=== PATIENT | male | born 1985 | race Caucasian/White ===

== ENCOUNTER 2019-06-27 08:32 | Day surgery (SDC) | payer OTHER ==
[~2019-06-27 08:32] MED LIST: BUPIVACAINE 0.5% PF 30 ML VIAL ONE; CEFAZOLIN SODIUM IN 0.9 % NACL 2 GM/100 ML BAG IV ONE; LIDOCAINE MPF 1%-EPI 1:200000 30 ML VIAL ONE
[2019-06-27] MEDS ORDERED: PROPOFOL 200 MG/20 ML VIAL IVP ONE (08:33)
[2019-06-27] MEDS ORDERED: DEXAMETHASONE 4 MG/ML VIAL IVP ONE (08:33)
[2019-06-27] MEDS ORDERED: fentaNYL 100 MCG/2 ML VIAL IVP ONE (08:33)
[2019-06-27] MEDS ORDERED: MIDAZOLAM 2 MG/2 ML VIAL IVP ONE (08:33)
[2019-06-27] MEDS ORDERED: KETOROLAC 30 MG/ML VIAL IVP ONE (08:33)
[2019-06-27] MEDS ORDERED: LACTATED RINGERS 1,000 ML IV ONE (09:03)
--- NOTE | 2019-06-27 09:21 | ANESTHESIA ---
Pre-Anesthesia VS, & Labs - Diagnosis umbilical hernia - Procedure umbilical hernia repair Vital Signs: Temp Pulse Resp BP Pulse Ox 36 C L 73 16 129/91 H 100 06/27/19 08:43 06/27/19 08:43 06/27/19 08:43 06/27/19 08:43 06/27/19 08:43 Height 6 ft 2 in Weight (kg) 89.1 kg - NPO >8 hours Home Medications and Allergies Home Medications: Ambulatory Orders Sildenafil Citrate [Viagra] 25 mg PO DAILY PRN 06/15/19 Multivitamin [Multiple Vitamins] 1 DAILY 06/27/19 Sildenafil Citrate [Viagra] 25 mg PO DAILY PRN 06/15/19 Multivitamin [Multiple Vitamins] 1 DAILY 06/27/19 Allergies/Adverse Reactions: Allergies Allergy/AdvReac Type Severity Reaction Status Date / Time No Known Drug Allergies Allergy Verified 06/15/19 13:58 Anes History & Medical History - Anesthetic History Family history of Anesthesia Complications: Denies Family history of Malignant Hyperthermia: Denies - Medical History Cardiovascular: reports: None Pulmonary: reports: Asthma (childhood asthma, now resolved), Sleep apnea (probable sleep apnea, has been refered for sleep study) Gastrointestinal: reports: None Urinary: reports: None Neuro: reports: None Musculoskeletal: reports: None Endocrine/Autoimmune: reports: None Blood Disorders: reports: None Skin: reports: None Smoking Status: Never smoker Psychosocial: reports: No issues indicated Exam General: Alert, Oriented x3, Cooperative, No acute distress Dental: WNL, Other (right upper incisor temporary crown) Mouth Openin Fingerbreadth Neck Mobility: Normal Mallampati classification: II Thyromental Distance: greater than 6 cm Respiratory: Lungs clear, Normal breath sounds, No respiratory distress, No accessory muscle use Cardiovascular: Regular rate, Normal S1, Normal S2, No murmurs Mental/Cognitive Status: Alert/Oriented X3, Normal for patient Plan Anesthesia Type: General Consent for Procedure(s) Verified and Reviewed: Yes Code Status: Attempt Resuscitation ASA classification: 2-Mild systemic disease Is this case an emergency?: No
[2019-06-27] MEDS ORDERED: BUPIVACAINE 0.5% PF 30 ML VIAL SUBQ ONE ×2 (10:51)
[2019-06-27] MEDS ORDERED: LIDOCAINE 1%-EPI 1:100000 30 ML MDV SUBQ ONE ×2 (10:51)
[2019-06-27] MEDS ORDERED: ceFAZolin 1 GM VIAL IR ONE (10:59)
[2019-06-27] MEDS ORDERED: ACETAMINOPHEN 325 MG TABLET PO PRN (11:22)
[2019-06-27] MEDS ORDERED: IBUPROFEN 600 MG TABLET PO PRN (11:22)
[2019-06-27] MEDS ORDERED: ONDANSETRON 4 MG/2 ML VIAL IVP PRN (11:22)
[2019-06-27] MEDS ORDERED: oxyCODONE 5 MG TABLET PO PRN (11:22)
--- NOTE | 2019-06-27 11:34 | OPERATIVE REPORT ---
Operative Report - General Procedure Date: 06/27/19 Planned Procedure: Umbilical Hernia Repair Pre-Op Diagnosis: IncarceratedvUmbilical Hernia Procedure Performed: Umbilical Hernia Repair Post Op Diagnosis: Incarcerated Umbilical Hernia - Procedure Note Primary Surgeon: Grabiel Anesthesia Provider: HEAVEN Aquino Anesthesia Technique: General ET tube Pathology: None Estimated Blood Loss (mL): 5 Indications: Painful, incarcerated umbilical hernia Findings: 1.5 cm defect containing incarcerated preperitoneal fat Complications: None apparent - Other Other Information/Narrative: After obtaining informed consent, the patient was taken to the operating room and placed in the supine position on the operating table. Following successful induction of general anesthesia, appropriate padding of all bony prominences, and placement appropriate monitors, the abdomen was prepped and draped in the standard surgical fashion. A timeout was held per scope protocol. All elements of the surgical safety checklist were followed before, during, and after the procedure. Following infiltration with local anesthetic to create a field block, an incision was created directly through the umbilicus and carried down through the skin to reveal the hernia sac below. This was a 5 cm knuckle of preperitoneal fat. This was carefully dissected free from the overlying skin and underlying fascia. We were eventually able to reduce it back into the abdominal cavity revealing a 1.5 peritoneal defect. The wound was then checked for hemostasis. The undersurface of the fascia was checked to be sure there were no peritoneal defects and that there was space for the mesh to lie flat. A 4 cm piece tagged round mesh was chosen for the repair. This was dipped in Ancef solution and deployed into the defect per middle school principal's directions. The overlying leaflets were then trimmed and tacked to the fascia with Prolene suture. The wound was checked for hemostasis. The bellybutton was reconstructed using 3-0 Vicryl suture and Monocryl stitches were placed in the skin. All sponge, needle, and instrument counts were correct at the conclusion of the case. The patient was allowed to wake from anesthesia without significant difficulty and taken to the postanesthesia care unit in good condition.
[2019-06-27] MEDS ORDERED: oxyCODONE 5 MG TABLET ONE (12:46)
[2019-06-27 13:24] VITALS: BP 128/76
== END 2019-06-27 08:33 | disposition home or self-care (01) ==
LOC: SDS 08:32
PROVIDERS: ATTEND Surgery
PROC: 0WUF0JZ Supplement Abdominal Wall with Synthetic Substitute, Open Approach (ICD-10-PCS; principal; 2019-06-27 09:45)
DX: K42.0 Umbilical hernia with obstruction, without gangrene (principal); J45.909 Unspecified asthma, uncomplicated
CPT/HCPCS: 49587; A9270; C1781; J0690; J7120

== ENCOUNTER 2019-06-29 08:59 | Emergency (ER) | payer OTHER ==
[2019-06-29 09:25] LABS: BILIRUBIN,URINE NEGATIVE (NEGATIVE); CLARITY,URINE CLEAR (CLEAR); GLUCOSE, URINE (UA) NEGATIVE (NEGATIVE); KETONES,URINE (UA) NEGATIVE (NEGATIVE); LEUKOCYTE ESTERASE, URINE NEGATIVE (NEGATIVE); NITRITE,URINE NEGATIVE (NEGATIVE); OCCULT BLOOD,URINE TRACE-LYSE (NEGATIVE); PROTEIN,URINE NEGATIVE (NEGATIVE); UROBILINOGEN,URINE 0.2 (NORMAL) E.U./dL (NORMAL)
--- NOTE | 2019-06-29 09:32 | ED Physician Documentation ---
PD HPI ABD PAIN - Stated complaint Stated Complaint: POST OP COMPLICATIONS - Chief complaint Chief Complaint: Abd Pain - History obtained from History obtained from: Patient - History of Present Illness Timing - onset: How many days ago (2) Timing - duration: Days (had umbilical hernia repair 2 days ago, regular technique, and had some feeling of fullness. Has pain locally at wound. Last evening into today, having feeling of severe cramping pain, abd fullness, and feeling that he needs to have BM. Had some nausea but no vomiting. No fever. Has been taking pain meds, colace, and Tylenol for symptoms.) Timing - details: Gradual onset, Still present Quality: Cramping, Aching, Fullness/distended Location: All over / everywhere, Periumbilical Radiation: No: Lower back, Left flank, Right flank Improved by: Laying still Worsened by: Eating, Moving, Palpation Associated symptoms: Nausea, Loss of appetite. No: Fever, Vomiting, Diarrhea, Constipation (last had BM prior to surgery, and with Mag Citrate cleanse pre-op. No BMs since surgery, but was cleansed and has had small volume to eat since.), Melena, Near syncope / syncope Review of Systems Constitutional: reports: Myalgias. denies: Fever, Chills Nose: denies: Rhinorrhea / runny nose, Congestion Throat: denies: Sore throat Cardiac: denies: Chest pain / pressure, Palpitations Respiratory: denies: Cough GI: denies: Abdominal Pain, Nausea, Vomiting Skin: reports: Lesions (has some bruising around the umbilical site, skin glue in place. No drainage. No signs of infection.). denies: Rash Musculoskeletal: denies: Neck pain, Back pain PD PAST MEDICAL HISTORY - Past Medical History Cardiovascular: None Respiratory: Asthma (childhood asthma, now resolved), Sleep apnea (probable sleep apnea, has been refered for sleep study) Neuro: None Endocrine/Autoimmune: None GI: None : None HEENT: None Psych: None Musculoskeletal: None Derm: None - Present Medications Home Medications: Ambulatory Orders Medication Instructions Recorded Confirmed Sildenafil Citrate [Viagra] 25 mg PO DAILY PRN 06/15/19 06/27/19 Multivitamin [Multiple Vitamins] 1 DAILY 06/27/19 oxyCODONE [Roxicodone] 5 mg PO Q4H PRN #20 tablet 06/27/19 Diclofenac Sodium 5 gm TP BID #100 gel..gram. 06/29/19 Glycerin Adult Supp 1 each TX BID #15 supp 06/29/19 Metoclopramide [Reglan] 10 mg PO TID #20 tablet 06/29/19 - Allergies Allergies/Adverse Reactions: Allergies Allergy/AdvReac Type Severity Reaction Status Date / Time No Known Drug Allergies Allergy Verified 06/29/19 09:09 - Social History Smoking Status: Never smoker PD ED PE NORMAL - Vitals Vital signs reviewed: Yes - General General: Alert and oriented X 3, Well developed/nourished, Other (appears uncomfrtable due to abd pain, fullness. ) - HEENT HEENT: Moist mucous membranes, Pharynx benign - Neck Neck: Supple, no meningeal sign, No adenopathy - Cardiac Cardiac: RRR, No murmur - Respiratory Respiratory: Clear bilaterally - Abdomen Abdomen: Soft, No organomegaly, Other (distended and firm abd with tenderness diffusely but more around the umbilicus. There is bruising just around the umbilicus, without any redness/warmth to suggest infection. ). No: Normal bowel sounds (very diminished/absent) - Rectal Rectal: Deferred - Back Back: No CVA TTP - Derm Derm: Normal color, Warm and dry - Extremities Extremities: No deformity, No tenderness to palpate, No edema, No calf tenderness / cord - Neuro Neuro: Alert and oriented X 3, No motor deficit, Normal speech Results - Vitals Vitals: Vital Signs - 24 hr 06/29/19 06/29/19 06/29/19 09:09 13:32 15:16 Temperature 36.6 C Heart Rate 61 51 L 45 L Respiratory 16 18 12 Rate Blood Pressure 151/95 H 139/88 H 134/82 H O2 Saturation 97 96 98 Oxygen O2 Source Room air - Labs Labs: Laboratory Tests 06/29/19 06/29/19 06/29/19 09:18 11:40 11:40 WBC 12.0 H RBC 5.35 Hgb 15.7 Hct 46.8 MCV 87.5 MCH 29.3 MCHC 33.5 RDW 12.7 Plt Count 252 MPV 10.1 Neut # (Auto) 9.8 H Lymph # (Auto) 1.1 L Hooker # (Auto) 0.8 Eos # (Auto) 0.1 Baso # (Auto) 0.0 Absolute Nucleated RBC 0.00 Nucleated RBC % 0.0 Sodium 138 Potassium 3.7 Chloride 101 Carbon Dioxide 27 Anion Gap 10.0 BUN 14 Creatinine 0.8 Estimated GFR (MDRD) 110 Glucose 106 H Calcium 9.0 Total Bilirubin 0.7 AST 17 ALT 18 Alkaline Phosphatase 62 Total Protein 7.8 Albumin 4.6 Globulin 3.2 Albumin/Globulin Ratio 1.4 Lipase 47 Urine Color YELLOW Urine Clarity CLEAR Urine pH 5.0 Ur Specific [place] 1.015 Urine Protein NEGATIVE Urine Glucose (UA) NEGATIVE Urine Ketones NEGATIVE Urine Occult Blood TRACE-LYSE Urine Nitrite NEGATIVE Urine Bilirubin NEGATIVE Urine Urobilinogen 0.2 (NORMAL) Ur Leukocyte Esterase NEGATIVE Ur Microscopic Review NOT INDICATED Urine Culture Comments NOT INDICATED - Rads (name of study) abd CT Radiology: Prelim report reviewed (dilated large bowel suggests post op ileus. No other acute process. ), See rad report PD MEDICAL DECISION MAKING - ED course Complexity details: re-evaluated patient (improved with some meds and fluids. ), considered differential, d/w patient, d/w client support consultant (Dr. Spain, who did the surgery. ) Departure - Departure Disposition: 01 Home, Self Care Clinical Impression: Postoperative ileus, S/P hernia repair Abdominal pain Qualifiers: Abdominal location: generalized Qualified Code(s): R10.84 - Generalized abdominal pain Condition: Stable Record reviewed to determine appropriate education?: Yes Instructions: Ileus Follow-Up: Anny Spain MD [Provider Admit Priv/Credential] - Daniela Marie MD [Primary Care Provider] - Prescriptions: Diclofenac Sodium 5 gm TP BID #100 gel..gram. Glycerin Adult Supp 1 each TX BID #15 supp Metoclopramide [Reglan] 10 mg PO TID #20 tablet Comments: Small frequent fluids and soft or liquid diet initially. Try to minimize the narcotic pain medicines and NSAID use Tylenol or ibuprofen. Add pain medicines if needed though. Diclofenac topical anti-inflammatory at the end incision area to decrease the pain locally. Reglan (metoclopramide) 3 times a day to try to stimulate the intestinal movement. Glycerin suppository once or twice daily for the next few days for the same purpose. Call Dr. Kaur's office this afternoon or first thing in the morning for an appointment time for recheck tomorrow. Return if worsening pain, vomiting, fever, other concerns. Discharge Date/Time: 06/29/19 15:32
[2019-06-29] MEDS ORDERED: KETOROLAC 30 MG/ML VIAL IVP STA (10:09)
[2019-06-29] MEDS ORDERED: ONDANSETRON 4 MG/2 ML VIAL IVP STA (10:09)
[2019-06-29] MEDS ORDERED: HYDROmorphone 2 MG/ML VIAL IVP STA (10:09)
[2019-06-29] MEDS ORDERED: SODIUM CHLORIDE 0.9% 1,000 ML IV ONE ×2 (10:11→13:59)
[2019-06-29] MEDS ORDERED: SIMETHICONE CHEW 80 MG TABLET PO STA (10:11)
[2019-06-29] MEDS ORDERED: IOVERSOL 320 100 ML VIAL IVP ONE ×2 (10:14→13:04)
[2019-06-29] MEDS ORDERED: HYDROmorphone 1 MG/ML CARPUJECT IM STA (10:51)
[2019-06-29 11:59] LABS: BASOPHILS % (AUTO) 0.3 %; EOSINOPHILS # (AUTO) 0.1 10^3/uL (0.0-0.7); HGB - HEMOGLOBIN 15.7 g/dL (14.0-18.0); LYMPHOCYTES # (AUTO) 1.1 10^3/uL (1.5-3.5); LYMPHOCYTES % (AUTO) 9.3 %; MEAN CORPUSCULAR HEMOGLOBIN 29.3 pg (27.0-31.0); MEAN CORPUSCULAR HGB CONC 33.5 g/dL (32.0-36.0); MEAN CORPUSCULAR VOLUME 87.5 fL (80.0-94.0); MEAN PLATELET VOLUME 10.1 fL (7.4-11.4); MONOCYTES # (AUTO) 0.8 10^3/uL (0.0-1.0); MONOCYTES % (AUTO) 6.9 %; NEUTROPHILS # (AUTO) 9.8 10^3/uL (1.5-6.6); PLT - PLATELET COUNT 252 10^3/uL (130-450); RED BLOOD COUNT 5.35 10^6/uL (4.70-6.10); RED CELL DISTRIBUTION WIDTH 12.7 % (12.0-15.0)
[2019-06-29 12:13] LABS: ALBUMIN 4.6 g/dL (3.2-5.5); ALBUMIN/GLOBULIN RATIO 1.4 (1.0-2.2); BILIRUBIN,TOTAL 0.7 mg/dL (0.2-1.0); CREATININE 0.8 mg/dL (0.6-1.2); TOTAL PROTEIN 7.8 g/dL (6.7-8.2)
[2019-06-29] MEDS ORDERED: HYDROmorphone 1 MG/ML CARPUJECT ONE (13:06)
[2019-06-29] MEDS ORDERED: KETOROLAC 30 MG/ML VIAL ONE (13:06)
[2019-06-29] MEDS ORDERED: ONDANSETRON 4 MG/2 ML VIAL ONE (13:06)
--- NOTE | 2019-06-29 13:14 | CT Report ---
Reason: post op abd pain/distended Procedure Date: 06/29/2019 Accession Number: [id number] / [id number] Procedure: CT - Abdomen/Pelvis W CPT Code: Final Report FULL RESULT: EXAM: CT ABDOMEN AND PELVIS EXAM DATE: 06/29/2019 12:43 PM. CLINICAL HISTORY: Post op abd pain/distended. COMPARISONS: None. TECHNIQUE: Routine helical CT imaging was performed through the abdomen and pelvis. IV contrast: OPTI 320 100ML. Enteric contrast: No. Reconstructions: Coronal and sagittal. In accordance with CT protocol optimization, one or more of the following dose reduction techniques were utilized for this exam: automated exposure control, adjustment of mA and/or KV based on patient size, or use of iterative reconstructive technique. FINDINGS: Lung Bases: Bibasilar atelectasis. No consolidation or effusion. Liver: Normal. No masses. Gallbladder/Bile Ducts: Unremarkable. Spleen: Normal. Pancreas: Normal. Adrenal Glands: Normal. Kidneys: Normal. No masses or hydronephrosis. Peritoneal Cavity/Bowel: Prominent gas and a small amount of stool throughout the colon with localized irregular wall thickening and lumen narrowing in the distal transverse colon measuring about 6 cm in length with a maximum wall thickness of about 13 mm. Best seen on sagittal image 28 and coronal image 15. No small bowel dilation. Small amount of free air deep to the umbilicus at the site of recent surgery. No free fluid or lymphadenopathy. The appendix is well visualized and normal. Pelvic Organs: Normal. The bladder and visualized pelvic organs are within normal limits. Vasculature: No aneurysms or other significant abnormality. Bones: No significant abnormality. Other: Small amount of infiltration in subcutaneous emphysema around the umbilicus. IMPRESSION: 1. Postoperative changes. Mild gas-filled dilation of colon most likely postop ileus. 2. Localized wall thickening in the transverse colon, neoplasm versus unusual appearing spasm. RADIA
[2019-06-29] MEDS ORDERED: BISACODYL 10 MG SUPP PR STA (13:58)
[2019-06-29] MEDS ORDERED: METOCLOPRAMIDE 10 MG/2 ML VIAL IVP STA (13:58)
[2019-06-29 15:32] VITALS: BP 134/82
== END 2019-06-29 15:32 | disposition home or self-care (01) ==
LOC: ED 08:59
DX: K91.89 Other postprocedural complications and disorders of digestive system (principal); K56.7 Ileus, unspecified; Y83.8 Other surgical procedures as the cause of abnormal reaction of the patient, or of later complication, without mention of misadventure at the time of the procedure; R10.84 Generalized abdominal pain
CPT/HCPCS: 36415; 51798; 74177; 80053; 81003; 83690; 85025; 96361; 96372; 96374; 96375; 99284; 99285; A9270; J1170; J2765; Q9967; 81001; 87086

== ENCOUNTER 2019-09-26 09:40 | Outpatient (CLI) | payer OTHER ==
[2019-09-26 13:03] VITALS: BP 135/93
--- NOTE | 2019-09-26 13:03 | SLEEP CARE CONSULTATION ---
Information from patient questionnaire entered by Valarie Crespo. I have reviewed and concur with the information entered by Valarie Crespo. This document represents the service I personally performed and the decisions made by me, Ramón Medina MD, [facility] [place]. History of Present Illness Reason for Visit: New patient Chief Complaint: reports: Unrefreshed sleep, Snoring, Fatigue Duration of Symptoms: 6 years Usual bedtime: 10 pm Time it takes to fall asleep: 30 mins Snores at night: Yes Observed to quit breathing while asleep: Yes Sleeps alone due to snoring: No Number of times waking at night: 1-2 Reasons for waking at night: reports: Bathroom Toss, Turn, or Twitch while sleeping: Yes Recalls having dreams: Yes (sometimes) Usually gets out of bed at: 5am Feels refreshed in the morning: No Morning headache: Yes Sleepy or fatigued during the day: Yes Ever fallen asleep while driving: No (almost) Takes day naps: No Prior sleep studies: No Additional HPI information: I had the pleasure of seeing Mr. Webster today regarding the possibility of him having a sleep disorder. As you know, he is a 34 year old gentleman who complains of loud snore, unrefreshed sleep, and persistent fatigue, for the past 6 years. The patient tells me that he normally goes to bed around 10 pm, and it takes him approximately 30 minutes to fall asleep. He has been told that he snores loudly and irregularly at night. He has also been observed to stop breathing in his sleep. His can still sleep in the same bed. He can recall waking up on the average of 1 - 2 times during the night. Most of the time he wakes up because of having to use the bathroom. He has never awakened because of his own snoring, choking, or having to gasp for air. There is a lot of tossing and turning in his sleep. No somniloquy (sleep talking) or somnambulism (sleep walking). Generally he can recall having dreams. In the morning he usually gets up out of the bed around 5 a.m. not feeling refreshed nor rested. He usually does have a morning headache that lasts an hour. During the day he complains of feeling sleepy and fatigued. His score on [place] Sleepiness Scale is 19 out of 24. He has never fallen asleep while driving nor has had any accident due to sleepiness. He usually does not take naps during the day. Upon falling asleep during the day he denies having vivid dreams. He has never had sleep paralysis, experienced cataplexy or symptoms of restless leg syndrome. He reports having impaired concentration during the day. - Parasomnia Symptoms Ever been unable to move upon waking from sleep: No Ever felt weak in the knees when startled or emotional: No Bothered by creepy, crawly, restless sensations in legs: No Problems with memory or concentration: Yes Subjective Initial [place] Sleepiness Scale score: 19 Social History The patient's occupation is a Active . Patient is and lives in [place]. Have you smoked in the past 12 months: No Alcohol use: Yes Alcohol amount and frequency: 1 - 2 drinks a month Caffeine use: Yes Caffeine amount and frequency: 1 a day Family History Family history of sleep disordered breathing: No Allergies and Home Medications Drug allergies reviewed: Yes (NKDA) Home medication list reviewed: Yes (none) Review of Systems Cardiovascular: denies: high blood pressure, palpitations, chest pain, irregular heart rate or pulse, leg or foot swelling, have to sleep sitting up, other Respiratory: denies: shortness of breath, wheeze, sputum production, chronic cough, other Gastrointestinal: denies: heartburn, difficulty swallowing, nausea, vomitting, diarrhea, abdominal pain, other Urinary: denies: incontinence, frequency, urgency, impotence, other Neurological: denies: headaches, seizure, head trauma, disorientation, speech dysfunction, gait or balance problems, fainting or unconsciousness, other Psychiatric: denies: Attention Deficit Hyperactivity, anxiety, depression, mood disorder, claustrophobia, other Ear/Nose/Throat: denies: nasal congestion, sinus problems, nose bleeds, dry mouth/throat, hoarseness, injury to nose, tonsillectomy, wisdom teeth removed, other Endocrine: denies: thyroid disease, history of goiter, sluggishness, too hot or cold, excessive thirst, increased appetite, increased urination, unexplained weakness, other Musculoskeletal: denies: joint pain, neck pain, back pain, joint swelling, muscle pain or cramping, mobility problems, other Immunologic: denies: sneezing, rash, itching, allergies to food or environment, other Physical Exam Vital signs obtained and entered by: Dr. Medina Blood Pressure: 135/93 Cuff size: regular Heart Rate: 69 O2 Saturation: 97 Height: 6 ft 2 in Weight: 195 lb Body Mass Index: 25.0 BMI Classification: Overweight Neck circumference: 15 Mood/affect: normal HEENT: No craniofacial malformation Nostrils: patent to airflow Turbinates: normal Septum: midline Mouth and throat: narrow oropharynx Soft palate: long Hard palate: normal Uvula: normal Uvula visualization: 100% Mallampati Class I Tongue: normal in size Tonsils: small Chin and jaw: normal size and position Neck: normal w/o lymphadenopathy or thyromegaly Heart: regular rate and rhythm Lungs: clear bilaterally Abdomen: soft, non-tender Extremities: no edema or clubbing Neurologic: intact, no focal deficits Impression and Plan IMPRESSION: 1. Obstructive Sleep Apnea-Hypopnea Syndrome, as suggested by history of loud and irregular snoring, observed cessation of breath while asleep, unrefreshed sleep, morning headache, cognitive impairment, and daytime hypersomnolence. Narrow oropharynx and obesity are common predisposing factors for obstructive sleep apnea-hypopnea syndrome. Pathophysiology of sleep-disordered breathing was discussed. I recommend proceeding to polysomnography to confirm the diagnosis and to assess severity. If he has significant sleep disordered breathing, a manual CPAP titration study will also be performed to find the optimal treatment pressure. I informed the patient of what the sleep studies involve and after some discussion, he agreed to proceed. Plan: 1. Schedule an in-laboratory polysomnography 2. Avoid long distance driving or when feeling sleepy. 3. Avoid alcohol, sedative and muscle relaxant around bedtime. 4. Attempt to lose some weight. 5. Return in 1 to 2 weeks after the study to discuss results and initiate therapy. I spent 100% of this visit face to face with the patient with greater than 50% of this was spent time counseling the patient and coordination of care.
== END 2019-09-26 09:41 | disposition home or self-care (01) ==
LOC: SC 09:40
PROVIDERS: ATTEND Internal Medicine Pulmonary Disease
DX: R06.83 Snoring (principal); R06.81 Apnea, not elsewhere classified; G47.8 Other sleep disorders; R51 Headache; R41.89 Other symptoms and signs involving cognitive functions and awareness; G47.10 Hypersomnia, unspecified; E66.3 Overweight; Z68.25 Body mass index [BMI] 25.0-25.9, adult
CPT/HCPCS: 99203; 99212

== ENCOUNTER 2019-10-07 19:34 | Outpatient (CLI) | payer OTHER | END 2019-10-07 19:35 | disposition home or self-care (01) | LOC: SC 19:34 | PROVIDERS: ATTEND Internal Medicine Pulmonary Disease | DX: G47.8 Other sleep disorders (principal) | CPT/HCPCS: 95810 ==

== ENCOUNTER 2019-10-10 10:32 | Outpatient (CLI) | payer OTHER ==
--- NOTE | 2019-10-10 11:08 | SLEEP CARE CONSULTATION ---
Information from patient questionnaire entered by Leena Todd. I have reviewed and concur with the information entered by Leena Todd. This document represents the service I personally performed and the decisions made by me, Ramón Medina MD, [facility]. History of Present Illness Initial [place] Sleepiness Scale score: 19 Current [place] Sleepiness Scale score: 19 Additional HPI information: HPI: Mr. Trimble returned for follow up of the sleep study he had on 10/07/2019. The polysomnography showed that the patient had normal sleep efficiency. The sleep architecture was abnormal for sleep fragmentation and reduced amount of time spent in slow wave sleep (N3). Respiratory monitoring showed evidence of upper airway resistance syndrome (AHI = 2.6; RDI = 5.4) associated with frequent arousals, oxyhemoglobin desaturation and mild hypoxia (naveen oxygen saturation of 84%). The respiratory events occurred mainly during supine sleep (supine AHI = 3.4; non-supine = 1.89). Snore was light to loud in intensity. There was no significant periodic leg movement of sleep. Cardiac rhythm was sinus rhythm with occasional sinus arrhythmia. No abnormal behavior (parasomnia) observed during the night. The patient was informed of these findings. I explained to him that he has upper airway resistance syndrome. Treatment options were discussed. Allergies and Home Medications Drug allergies reviewed: Yes Home medication list reviewed: Yes Review of Systems Review of systems same as previous: Yes Physical Exam Height: 6 ft 2 in Weight: 195 lb Body Mass Index: 25.0 BMI Classification: Overweight Impression and Plan IMPRESSION: 1. Upper airway resistance syndrome, mild. Because he has symptoms consistent with sleep-disordered breathing, I recommend a trial of positive airway pressure therapy at low pressure. Oral appliance therapy is another treatment option but it is less effective than CPAP. The patient would like to try using CPAP. PLAN: 1. Prescription made for an autoCPAP set between 5 and 10 cmH2O, heated humidifier, and related supplies. 2. Avoid weight gain. 3. Avoid sleeping supine 4. Follow up with a sleep physician in [place], [place] after a month on the treatment. I spent 100% of this visit face to face with the patient with greater than 50% of this was spent time counseling the patient and coordination of care.
== END 2019-10-10 10:33 | disposition home or self-care (01) ==
LOC: SC 10:32
PROVIDERS: ATTEND Internal Medicine Pulmonary Disease
DX: G47.8 Other sleep disorders (principal); E66.3 Overweight; Z68.25 Body mass index [BMI] 25.0-25.9, adult
CPT/HCPCS: 99212; 99213